=== PATIENT | male | born 1985 | race American Indian/Alaskan Native ===

== ENCOUNTER 2021-05-22 12:09 | Emergency (ER) | payer OTHER ==
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
[2021-05-22 12:40] VITALS: BP 122/82
== END 2021-05-22 12:53 | disposition home or self-care (01) ==
LOC: ED 12:09
DX: Z48.02 Encounter for removal of sutures (principal)